=== PATIENT | female | born 1980 | race Caucasian/White ===

== ENCOUNTER 2018-04-26 00:36 | Emergency (ER) | payer OTHER, BC ==
[2018-04-26] MEDS: ONDANSETRON (ODT) 4 MG TAB ODT (02:14)
[2018-04-26] MEDS: HYDROCODONE/APAP (5/325) TAB PO (02:14)
== END 2018-04-26 03:30 | disposition home or self-care (01) ==
LOC: FTE 00:36
DX: S05.11XA Contusion of eyeball and orbital tissues, right eye, initial encounter (principal); S80.211A Abrasion, right knee, initial encounter; S80.212A Abrasion, left knee, initial encounter; F17.210 Nicotine dependence, cigarettes, uncomplicated; V89.2XXA Person injured in unspecified motor-vehicle accident, traffic, initial encounter
CPT/HCPCS: 70450; 70480; 72125; 72128; 72131; 73562; 81025; 99285-25